=== PATIENT | female | born 1990 | race Caucasian/White ===

== ENCOUNTER 2024-11-14 01:31 | Emergency (ER) | payer BC ==
[2024-11-14] MEDS ORDERED: Ketorolac Tromethamine 30 MG (1 mL) VIAL ONE (02:17)
== END 2024-11-14 02:24 | disposition home or self-care (01) ==
LOC: BURERS 01:31
DX: M94.0 Chondrocostal junction syndrome [Tietze] (principal)
CPT/HCPCS: 96372; 99284; J1885